=== PATIENT | female | born 1995 | race African-American/Black ===

== ENCOUNTER 2023-12-11 05:21 | Emergency (ER) | payer MEDICAID ==
[~2023-12-11] VITALS: Ht 157.5 cm; Wt 109.1 kg
[2023-12-11 05:54] VITALS: BP 117/83; PULSE 128; RESP 18; TEMP 98.2
[2023-12-11] MEDS: DiphenhydrAMINE HCL 25 MG CAPSULE PO ONE (06:14)
[2023-12-11] MEDS: PredniSONE 20 MG TABLET PO ONE (06:14)
[2023-12-11] MEDS ORDERED: DIPH25CA85 PO (06:25)
[2023-12-11] MEDS ORDERED: PRED-554 PO (06:25)
== END 2023-12-11 06:54 | disposition home or self-care (01) ==
LOC: EMS 05:22
DX: T78.40XA Allergy, unspecified, initial encounter (principal); X58.XXXA Exposure to other specified factors, initial encounter
CPT/HCPCS: 99283; J7512